=== PATIENT | male | born 1990 | race Caucasian/White ===

== ENCOUNTER 2016-08-29 19:32 | Emergency (ER) | payer OTHER ==
[~2016-08-29 19:32] MED LIST: /CARB4TA; /CARBXR20T; /ESCI10TA; /ESCI10TA PEG; DEPA500T2 PO; DILA100C; DILA100C PO; KLON0.5T PO; TRAZ50TA2 PO
[2016-08-29] MEDS ORDERED: PHENYTOIN ER 100 MG CAP As Ordered ONE (21:39)
[2016-08-29] MEDS ORDERED: lamoTRIgine 25 MG TAB As Ordered ONE (21:40)
[2016-08-29] MEDS ORDERED: ACETAMINOPHEN 325 MG TAB As Ordered ONE (21:45)
[2016-08-29] MEDS ORDERED: DIVALPROEX 250 MG TAB As Ordered ONE (21:46)
[2016-08-29] MEDS ORDERED: ADACEL/BOOSTRIX VACCINE (DIPHTH/PERTUSS/ACELL/TETANUS)0.5ML SYR (90715) As Ordered ONE (22:18)
--- NOTE | 2016-08-29 22:30 | REPUSA ---
CT of the cervical spine Clinical history: Pain. Trauma. Technique: Multiple axial CT images were obtained through the cervical spine without administration o f contrast. Coronal and sagittal 3-D reconstructed images were also obtained. Comparison: None. Findings: The cervical vertebral bodies are in satisfactory positioning and alignment. No fractures or dislocat ions are demonstrated. The odontoid process is intact. Intervertebral disc spaces are well-maintained . There is no evidence of facet subluxation. The neural foramen appear grossly patent. The cervical c ranial junction is intact. The cervical spinal canal demonstrates normal caliber and contour without evidence of spinal stenosis. The surrounding soft tissues are within normal limits. Impression: Unremarkable CT examination of the cervical spine.
--- NOTE | 2016-08-29 22:30 | REPUSA ---
CT of the head Clinical history: Headache. Trauma. Technique: Multiple axial CT images were obtained through the head without administration of contrast . Findings: The ventricles and sulci are symmetric bilaterally. There is no evidence of acute hemorrhag e or infarct. There is no midline shift, mass effect, or extra-axial fluid collection. The osseous st ructures are unremarkable. The visualized paranasal sinuses and mastoid air cells are clear. There is superficial soft tissue swelling in the left frontal region. Impression: No evidence of intracranial hemorrhage or infarct. Superficial soft tissue swelling in th e left frontal region.
--- NOTE | 2016-08-29 23:14 | REP ---
Clinical: Trauma . Technique: Internal rotation, external rotation, and Y view right shoulder . Findings: No acute fracture or dislocation. The acromioclavicular and glenohumeral joints are intact. No periarticular calcifications or degenerative changes are appreciated. Sub acromial space is normal. Surrounding soft tissues are unremarkable. Impression: Normal right shoulder radiographs. Signed by Prem Chappell MD 08/29/2016 11:06 P
--- NOTE | 2016-08-30 00:10 | REPUSA ---
CT of the orbits without contrast Clinical history: Pain, injury. Technique: Multiple axial CT images were obtained through the facial bones and orbits utilizing 3 mm axial slices without administration of contrast. Coronal and sagittal reconstructions were also obtai stephanie. Findings: The visualized paranasal sinuses are clear. The osteomeatal complexes are patent bilaterall y. The nasal septum is midline. The visualized mastoid air cells are clear. The osseous structures do not demonstrate any acute abnormalities. The superficial soft tissues are swollen significant home i n the left frontal region superior to the left orbit. Impression: No acute fracture. Significant superficial soft tissue swelling in the left frontal regio n.
--- NOTE | 2016-08-30 00:39 | EDDOCDS ---
Nurse's Notes [facility] Name: Peter Mcintyre Age: 26 yrs Sex: Male : 1990 Arrival Date: 08/29/2016 Time: 19:32 Bed I1 / M1 Private MD: Diagnosis: Epilepsy and recurrent seizures;Contusion of other part of head;Abrasion of other part of head Presentation: 08/29 19:42 Presenting complaint: Patient states: believes he had a seizure - states he does not pml have a neurologist right now and has been "limited" on his medications - has been dropped by neuro here and refuses to see neuro in [place]. states seizure around and hour ago - and fell striking head and notes swelling and bruising to left tenriism and eyebrow. Adult Sepsis Screening: The patient does not have new or worsening altered mentation. Patient's respiratory rate is less than 22. Systolic blood pressure is greater than 100. Patient has a qSOFA score of 0- Negative Sepsis Screen. Suicide/Homicide risk assessment- the patient denies having any suicidal and/or homicidal ideations and does not present with any other emotional, behavioral or mental health complaints. Status: Patient is not a workforce services representative or dependent. Transition of care: patient was not received from another setting of care. 19:42 Acuity: TAMIKA Level 3 pml 19:42 Method Of Arrival: Walkin/Carried/Asstd pml Triage Assessment: 19:45 General: Appears in no apparent distress, Behavior is appropriate for age, cooperative. pml Pain: Location: left eye Pain currently is 7 out of 10 on a pain scale. HIV screening NA for this visit Offered previously. Historical: - Allergies: no known allergies; - Home Meds: 1. phenytoin sodium extended 100 mg oral cap 1 cap twice a day (Last dose: 08/28/2016) 2. Depakote 500 mg Oral TbEC 1 tab 2 times per day (Last dose: 08/28/2016) 3. Lamictal 150 mg Oral tab 1 tab 2 times per day (Last dose: 08/28/2016) - PMHx: Anxiety; Depression; insomnia; Seizure Disorder; - PSHx: vagal nerve stimulator; - Social history: Smoking status: Patient uses tobacco products, heavy tobacco smoker. No barriers to communication noted, The patient speaks fluent Syriac, Speaks appropriately for age. - Family history: Not pertinent. - : The pt / caregiver states he / she is not on anticoagulants. Home medication list is obtained from the patient. - Exposure Risk Screening:: None identified. Screenin/17 00:36 Screening information is obtained from the patient. Fall risk: At risk due to apparent jmb chemical impairment. Assistance ADL's: requires no assistance with activities of daily living. Abuse/DV Screen: The patient / caregiver reports he/she is: not in a situation that causes fear, pain or injury. Nutritional screening: No deficits noted. Advance Directives: Currently, there is no health care proxy. There is no active DNR order. There is no living will. There is no Power of Riveting Machine Operator. home support is adequate. Assessment: 08/29 20:11 General: Appears in no apparent distress, comfortable, Behavior is appropriate for age, jmb cooperative. Neurological: Level of Consciousness is awake, alert, obeys commands, Oriented to person, place, time, Speech is normal, Facial symmetry appears normal, Facial symmetry: tongue is midline. Cardiovascular: Capillary refill < 3 seconds Heart tones present Pulses are all present. Rhythm is regular. Respiratory: Airway is patent Respiratory effort is even, unlabored, Respiratory pattern is regular, symmetrical. GI: Abdomen is non- distended Bowel sounds present X 4 quads. Abd is soft and non tender X 4 quads. Derm: Skin is pink, warm & dry. Musculoskeletal: Range of motion intact in all extremities. 21:46 General: patient resting in bed texting on his cell phone.. cp1 23:54 General: Appears in no apparent distress, comfortable, Behavior is appropriate for age, jmb cooperative, Patient laying on stretcher, no voiced complaints at this time. . Neurological: Level of Consciousness is awake, alert, obeys commands, Oriented to person, place, time. Respiratory: Airway is patent Respiratory effort is even, unlabored, Respiratory pattern is regular, symmetrical. 08/30 00:36 General: Patient instructed on discharge instructions. Patient asked if there were any [facility] questions regarding discharge, patient stated no. Patient signed discharge instructions. Patient discharged in stable condition. . Vital Signs: 08/29 19:34 BP 167 / 87; Pulse 110; Resp 18; Temp 98.1; Pulse Ox 93% ; Weight 103.87 kg; Height 5 jlm ft. 7 in. (170.18 cm); Pain 8/10; 21:45 BP 145 / 65; Pulse 72; Resp 18; Temp 97.8(O); Pulse Ox 96% on R/A; Pain 5/10; cp1 08/30 00:35 BP 129 / 68; Pulse 96; Resp 18; Temp 96.4(O); Pulse Ox 94% on R/A; Pain 5/10; kb5 08/29 19:34 Body Mass Index 35.87 (103.87 kg, 170.18 cm) jl Vitals: 08/29 19:34 Log In Time: August 29, 2016 at 19:34. RN notified that patient meets Red Flag jl criteria. ED Course: 19:33 Patient visited by Maine Zhong, Gear Cutter. jlm 19:33 Patient moved to Waiting jlm 19:36 Patient visited by Maine Zhong, Gear Cutter. jlm 19:44 Triage Initiated pml 19:45 Patient visited by Aviva Mota RN. pml 19:46 Patient moved to I1 / M1 pml 19:50 Patient visited by Sonya Lawrence. sew 19:50 Seizure precautions initiated. sew 20:12 Patient visited by Raj Charles,CARLOS. jmb 21:08 Patient visited by Brittany Jim LPN. cp1 21:13 Reynold Walsh PA is PHCP. mo1 21:13 Sal Honeycutt DO is Attending Physician. mo1 21:21 Patient visited by Reynold Walsh PA. mo1 21:45 Patient visited by Brittany Jim LPN. cp1 21:50 Patient moved to Radiology lucrecia 21:54 Patient visited by Brittany Jim LPN. cp1 22:16 Patient moved to I1 / M1 lucrecia 22:26 Patient visited by Brittany Jim LPN. cp1 22:27 [facility] [place] was [place] into [employer] and attached to record. zo 22:49 Patient visited by Brittany Jim LPN. cp1 23:08 CT Spine,Cervical W/o Contrast Returned. EDMS 23:08 CT Head Without Contrast Returned. EDMS 23:17 Patient visited by Brittany Jim LPN. cp1 23:54 Patient visited by Raj Charles RN. jmb 08/30 00:02 Shoulder, Complete Returned. EDMS 00:36 The patient / caregiver is instructed regarding the plan of care and ED course. jmb 00:36 CT Orbit Without Contrast Returned. EDMS 00:36 No IV's were initiated during this patient's visit. No procedures done that require jmb assistance. 00:37 Patient visited by Edgar Alberts PCA. kb5 Administered Medications: 08/29 21:53 Drug: Acetaminophen 975 mg [acetaminophen 325 mg tablet (3 tabs)] Route: PO; cp1 21:53 Drug: Depakote DR - Divalproex Sodium 500 mg [divalproex 250 mg tablet,delayed release cp1 (2 tabs)] Route: PO; 21:53 Drug: LaMICtal 150 mg Route: PO; cp1 21:53 Drug: Phenytoin Sodium Extended 100 mg [phenytoin sodium extended 100 mg capsule (1 cp1 caps)] Route: PO; 22:31 Drug: Tetanus- Diptheria-Acellular Pertussis 0.5 ml [diphth,pertussis(acel),tetanus 2.5 cp1 Lf unit-8 mcg-5 Lf/0.5mL IM syringe (0.5 mL)] {Pbx Repairer: [employer]. Exp: 09/24/2018. Lot #: [id number]. } Route: IM; Site: right deltoid; Order Results: Radiology Order: CT Head Without Contrast Test: CT Head Without Contrast REASON FOR EXAMINATION: Trauma; ; CT of the head; Clinical history: Headache. Trauma.; Technique: Multiple axial CT images were obtained through the head without administration of contrast; .; Findings: The ventricles and sulci are symmetric bilaterally. There is no evidence of acute hemorrhag; e or infarct. There is no midline shift, mass effect, or extra-axial fluid collection. The osseous st; ructures are unremarkable. The visualized paranasal sinuses and mastoid air cells are clear. There is; superficial soft tissue swelling in the left frontal region.; Impression: No evidence of intracranial hemorrhage or infarct. Superficial soft tissue swelling in th; e left frontal region.; ; Radiology Order: CT Spine,Cervical W/o Contrast Test: CT Spine,Cervical W/o Contrast REASON FOR EXAMINATION: Trauma; ; CT of the cervical spine; Clinical history: Pain. Trauma.; Technique: Multiple axial CT images were obtained through the cervical spine without administration o; f contrast. Coronal and sagittal 3-D reconstructed images were also obtained.; Comparison: None.; Findings:; The cervical vertebral bodies are in satisfactory positioning and alignment. No fractures or dislocat; ions are demonstrated. The odontoid process is intact. Intervertebral disc spaces are well-maintained; . There is no evidence of facet subluxation. The neural foramen appear grossly patent. The cervical c; ranial junction is intact. The cervical spinal canal demonstrates normal caliber and contour without; evidence of spinal stenosis. The surrounding soft tissues are within normal limits.; Impression: Unremarkable CT examination of the cervical spine.; ; Radiology Order: CT Orbit Without Contrast Test: CT Orbit Without Contrast REASON FOR EXAMINATION: Trauma; ; CT of the orbits without contrast; Clinical history: Pain, injury.; Technique: Multiple axial CT images were obtained through the facial bones and orbits utilizing 3 mm; axial slices without administration of contrast. Coronal and sagittal reconstructions were also obtai; stephanie.; Findings: The visualized paranasal sinuses are clear. The osteomeatal complexes are patent bilaterall; y. The nasal septum is midline. The visualized mastoid air cells are clear. The osseous structures do; not demonstrate any acute abnormalities. The superficial soft tissues are swollen significant home i; n the left frontal region superior to the left orbit.; Impression: No acute fracture. Significant superficial soft tissue swelling in the left frontal regio; n.; ; Radiology Order: Shoulder, Complete Test: Shoulder, Complete REASON FOR EXAMINATION: Trauma; Clinical: Trauma .; ; Technique: Internal rotation, external rotation, and Y view right shoulder .; ; Findings:; No acute fracture or dislocation. The acromioclavicular and glenohumeral joints; are intact. No periarticular calcifications or degenerative changes are; appreciated. Sub acromial space is normal. Surrounding soft tissues are; unremarkable.; ; Impression:; Normal right shoulder radiographs.; ; ; Signed by; Prem Chappell MD 08/29/2016 11:06 P; Outcome: 08/30 00:30 Discharge ordered by Provider. mo1 00:36 Discharge Assessment: Patient awake, alert and oriented x 3. No cognitive and/or jmb functional deficits noted. Patient verbalized understanding of disposition instructions. Patient awake and alert. obeys commands, Oriented to person, place and time. Patient verbalized understanding of disposition instructions. Patient has no functional deficits. patient administered narcotics - no. The following High Risk Discharge criteria are identified: None. Discharged to home ambulatory. Condition: stable. Discharge instructions given to patient, Instructed on discharge instructions, follow up and referral plans. Demonstrated understanding of instructions, Pt was receptive of discharge instructions/ teaching. CT Study completed. Property sent home with patient. 00:38 Patient left the ED. esther Signatures: Dispatcher [employer] EDMS Sourav Castellano Zoeann zo [place]roft, Kristopher, MACHINE ADJUSTER LEADER CASE TRIM MACHINE ADJUSTER LEADER CASE TRIM kb5 Brittany Jim,SOLAR PHOTOVOLTAIC INSTALLER SOLAR PHOTOVOLTAIC INSTALLER cp1 Aviva Mota,RN Sonya Calderon Michael, PA PA mo1 Raj Charles,Maine Vyas RN, Gear Cutter Unit [facility] MTDDoug
--- NOTE | 2016-08-30 00:39 | EDDOCDS ---
Physician Documentation [facility] Name: Peter Mcintyre Age: 26 yrs Sex: Male : 1990 Arrival Date: 08/29/2016 Time: 19:32 Bed I1 / M1 Private MD: Disposition: 08/30/16 00:30 Discharged to Home/Self Care. Impression: Epilepsy and recurrent seizures, Contusion of other part of head, Abrasion of other part of head. - Condition is Stable. - Discharge Instructions: Abrasion, Facial or Scalp Contusion, Head Injury, Adult. - Medication Reconciliation, Local Pharmacy Hours form. - Follow up: Private Physician; When: Call to arrange an appointment; Reason: Recheck today's complaints, Continuance of care. - Problem is new. - Symptoms are unchanged. Historical: - Allergies: no known allergies; - Home Meds: 1. phenytoin sodium extended 100 mg oral cap 1 cap twice a day (Last dose: 08/28/2016) 2. Depakote 500 mg Oral TbEC 1 tab 2 times per day (Last dose: 08/28/2016) 3. Lamictal 150 mg Oral tab 1 tab 2 times per day (Last dose: 08/28/2016) - PMHx: Anxiety; Depression; insomnia; Seizure Disorder; - PSHx: vagal nerve stimulator; - Social history: Smoking status: Patient uses tobacco products, heavy tobacco smoker. No barriers to communication noted, The patient speaks fluent Lao, Speaks appropriately for age. - Family history: Not pertinent. - : The pt / caregiver states he / she is not on anticoagulants. Home medication list is obtained from the patient. - Exposure Risk Screening:: None identified. Vital Signs: 08/29 19:34 BP 167 / 87; Pulse 110; Resp 18; Temp 98.1; Pulse Ox 93% ; Weight 103.87 kg / 228.99 jlm lbs; Height 5 ft. 7 in. (170.18 cm); Pain 8/10; 21:45 BP 145 / 65; Pulse 72; Resp 18; Temp 97.8(O); Pulse Ox 96% on R/A; Pain 5/10; cp1 08/30 00:35 BP 129 / 68; Pulse 96; Resp 18; Temp 96.4(O); Pulse Ox 94% on R/A; Pain 5/10; kb5 08/29 19:34 Body Mass Index 35.87 (103.87 kg, 170.18 cm) jlm MDM: 08/29 21:30 Acetaminophen Tablet 975 mg PO once ordered. mo1 21:30 Tetanus- Diptheria-Acellular Pertussis 0.5 ml IM once; Routine booster 10-64yrs, >64 mo1 with child contact [place] [employer] ordered. 21:31 CT Head Without Contrast Ordered. EDMS 21:31 CT Spine,Cervical W/o Contrast Ordered. EDMS 21:31 CT Orbit Without Contrast Ordered. EDMS 21:[address] - Divalproex Sodium Delayed Release Tablet 500 mg PO once ordered. mo1 21:31 LaMICtal 150 mg PO once ordered. mo1 21:31 Phenytoin Sodium Extended 100 mg PO once ordered. mo1 21:44 Shoulder, Complete Ordered. EDMS 22:26 Financial registration complete. zo 22:27 [facility] [place] Payment Agreement was scanned into [employer] and attached to record. zo Administered Medications: 21:53 Drug: Acetaminophen 975 mg [acetaminophen 325 mg tablet (3 tabs)] Route: PO; cp1 21:53 Drug: Depakote DR - Divalproex Sodium 500 mg [divalproex 250 mg tablet,delayed release cp1 (2 tabs)] Route: PO; 21:53 Drug: LaMICtal 150 mg Route: PO; cp1 21:53 Drug: Phenytoin Sodium Extended 100 mg [phenytoin sodium extended 100 mg capsule (1 cp1 caps)] Route: PO; 22:31 Drug: Tetanus- Diptheria-Acellular Pertussis 0.5 ml [diphth,pertussis(acel),tetanus 2.5 cp1 Lf unit-8 mcg-5 Lf/0.5mL IM syringe (0.5 mL)] {Airframe Technician: [employer]. Exp: 09/24/2018. Lot #: [id number]. } Route: IM; Site: right deltoid; Signatures: Dispatcher [employer] EDMS Quin Tolliver Paulina, RN RN pml O'Hagan, Michael, PA PA mo1 Raj Charles RN RN jmb Perkins, Cheryl LPN cp1 The chart was reviewed and I authenticate all verbal orders and agree with the evaluation and treatment provided.Attachments: 22:27 [facility] [place] zo MTDD
--- NOTE | 2016-08-30 00:43 | EDDOCDS ---
Physician Documentation [facility] Name: Peter Mcintyre Age: 26 yrs Sex: Male : 1990 Arrival Date: 08/29/2016 Time: 19:32 Bed I1 / M1 Private MD: Disposition: 08/30/16 00:30 Discharged to Home/Self Care. Impression: Epilepsy and recurrent seizures, Contusion of other part of head, Abrasion of other part of head. - Condition is Stable. - Discharge Instructions: Abrasion, Facial or Scalp Contusion, Head Injury, Adult. - Medication Reconciliation, Local Pharmacy Hours, Work Release Form - 2 day form. - Follow up: Private Physician; When: Call to arrange an appointment; Reason: Recheck today's complaints, Continuance of care. - Problem is new. - Symptoms are unchanged. Historical: - Allergies: no known allergies; - Home Meds: 1. phenytoin sodium extended 100 mg oral cap 1 cap twice a day (Last dose: 08/28/2016) 2. Depakote 500 mg Oral TbEC 1 tab 2 times per day (Last dose: 08/28/2016) 3. Lamictal 150 mg Oral tab 1 tab 2 times per day (Last dose: 08/28/2016) - PMHx: Anxiety; Depression; insomnia; Seizure Disorder; - PSHx: vagal nerve stimulator; - Social history: Smoking status: Patient uses tobacco products, heavy tobacco smoker. No barriers to communication noted, The patient speaks fluent Syriac, Speaks appropriately for age. - Family history: Not pertinent. - : The pt / caregiver states he / she is not on anticoagulants. Home medication list is obtained from the patient. - Exposure Risk Screening:: None identified. Vital Signs: 08/29 19:34 BP 167 / 87; Pulse 110; Resp 18; Temp 98.1; Pulse Ox 93% ; Weight 103.87 kg / 228.99 jlm lbs; Height 5 ft. 7 in. (170.18 cm); Pain 8/10; 21:45 BP 145 / 65; Pulse 72; Resp 18; Temp 97.8(O); Pulse Ox 96% on R/A; Pain 5/10; cp1 08/30 00:35 BP 129 / 68; Pulse 96; Resp 18; Temp 96.4(O); Pulse Ox 94% on R/A; Pain 5/10; kb5 08/29 19:34 Body Mass Index 35.87 (103.87 kg, 170.18 cm) [facility] MDM: 08/29 21:30 Acetaminophen Tablet 975 mg PO once ordered. mo1 21:30 Tetanus- Diptheria-Acellular Pertussis 0.5 ml IM once; Routine booster 10-64yrs, >64 mo1 with child contact [place] [employer] ordered. 21:31 CT Head Without Contrast Ordered. EDMS 21:31 CT Spine,Cervical W/o Contrast Ordered. EDMS 21:31 CT Orbit Without Contrast Ordered. EDMS 21:[address] - Divalproex Sodium Delayed Release Tablet 500 mg PO once ordered. mo1 21:31 LaMICtal 150 mg PO once ordered. mo1 21:31 Phenytoin Sodium Extended 100 mg PO once ordered. mo1 21:44 Shoulder, Complete Ordered. EDMS 22:26 Financial registration complete. zo 22:27 [facility] Payment Agreement was scanned into [employer] and attached to record. zo Administered Medications: 21:53 Drug: Acetaminophen 975 mg [acetaminophen 325 mg tablet (3 tabs)] Route: PO; cp1 21:53 Drug: Depakote DR - Divalproex Sodium 500 mg [divalproex 250 mg tablet,delayed release cp1 (2 tabs)] Route: PO; 21:53 Drug: LaMICtal 150 mg Route: PO; cp1 21:53 Drug: Phenytoin Sodium Extended 100 mg [phenytoin sodium extended 100 mg capsule (1 cp1 caps)] Route: PO; 22:31 Drug: Tetanus- Diptheria-Acellular Pertussis 0.5 ml [diphth,pertussis(acel),tetanus 2.5 cp1 Lf unit-8 mcg-5 Lf/0.5mL IM syringe (0.5 mL)] {Farm Instructor: [employer]. Exp: 09/24/2018. Lot #: [id number]. } Route: IM; Site: right deltoid; Signatures: Dispatcher [employer] EDMS Quin Tolliver Paulina, RN RN pml O'Hagan, Michael, PA PA mo1 Raj Charles RN RN jmb Perkins, Cheryl LPN cp1 The chart was reviewed and I authenticate all verbal orders and agree with the evaluation and treatment provided.Attachments: 22:27 [facility] [place] MTDD
--- NOTE | 2016-08-30 00:43 | EDDOCDS ---
Nurse's Notes [facility] Name: Peter Mcintyre Age: 26 yrs Sex: Male : 1990 Arrival Date: 08/29/2016 Time: 19:32 Bed I1 / M1 Private MD: Diagnosis: Epilepsy and recurrent seizures;Contusion of other part of head;Abrasion of other part of head Presentation: 08/29 19:42 Presenting complaint: Patient states: believes he had a seizure - states he does not pml have a neurologist right now and has been "limited" on his medications - has been dropped by neuro here and refuses to see neuro in [place]. states seizure around and hour ago - and fell striking head and notes swelling and bruising to left muslim and eyebrow. Adult Sepsis Screening: The patient does not have new or worsening altered mentation. Patient's respiratory rate is less than 22. Systolic blood pressure is greater than 100. Patient has a qSOFA score of 0- Negative Sepsis Screen. Suicide/Homicide risk assessment- the patient denies having any suicidal and/or homicidal ideations and does not present with any other emotional, behavioral or mental health complaints. Status: Patient is not a central service supply distributor or dependent. Transition of care: patient was not received from another setting of care. 19:42 Acuity: TAMIKA Level 3 pml 19:42 Method Of Arrival: Walkin/Carried/Asstd pml Triage Assessment: 19:45 General: Appears in no apparent distress, Behavior is appropriate for age, cooperative. pml Pain: Location: left eye Pain currently is 7 out of 10 on a pain scale. HIV screening NA for this visit Offered previously. Historical: - Allergies: no known allergies; - Home Meds: 1. phenytoin sodium extended 100 mg oral cap 1 cap twice a day (Last dose: 08/28/2016) 2. Depakote 500 mg Oral TbEC 1 tab 2 times per day (Last dose: 08/28/2016) 3. Lamictal 150 mg Oral tab 1 tab 2 times per day (Last dose: 08/28/2016) - PMHx: Anxiety; Depression; insomnia; Seizure Disorder; - PSHx: vagal nerve stimulator; - Social history: Smoking status: Patient uses tobacco products, heavy tobacco smoker. No barriers to communication noted, The patient speaks fluent Telugu, Speaks appropriately for age. - Family history: Not pertinent. - : The pt / caregiver states he / she is not on anticoagulants. Home medication list is obtained from the patient. - Exposure Risk Screening:: None identified. Screenin/17 00:36 Screening information is obtained from the patient. Fall risk: At risk due to apparent jmb chemical impairment. Assistance ADL's: requires no assistance with activities of daily living. Abuse/DV Screen: The patient / caregiver reports he/she is: not in a situation that causes fear, pain or injury. Nutritional screening: No deficits noted. Advance Directives: Currently, there is no health care proxy. There is no active DNR order. There is no living will. There is no Power of Restorative Care Technician. home support is adequate. Assessment: 08/29 20:11 General: Appears in no apparent distress, comfortable, Behavior is appropriate for age, jmb cooperative. Neurological: Level of Consciousness is awake, alert, obeys commands, Oriented to person, place, time, Speech is normal, Facial symmetry appears normal, Facial symmetry: tongue is midline. Cardiovascular: Capillary refill < 3 seconds Heart tones present Pulses are all present. Rhythm is regular. Respiratory: Airway is patent Respiratory effort is even, unlabored, Respiratory pattern is regular, symmetrical. GI: Abdomen is non- distended Bowel sounds present X 4 quads. Abd is soft and non tender X 4 quads. Derm: Skin is pink, warm & dry. Musculoskeletal: Range of motion intact in all extremities. 21:46 General: patient resting in bed texting on his cell phone.. cp1 23:54 General: Appears in no apparent distress, comfortable, Behavior is appropriate for age, jmb cooperative, Patient laying on stretcher, no voiced complaints at this time. . Neurological: Level of Consciousness is awake, alert, obeys commands, Oriented to person, place, time. Respiratory: Airway is patent Respiratory effort is even, unlabored, Respiratory pattern is regular, symmetrical. 08/30 00:36 General: Patient instructed on discharge instructions. Patient asked if there were any [facility] questions regarding discharge, patient stated no. Patient signed discharge instructions. Patient discharged in stable condition. . Vital Signs: 08/29 19:34 BP 167 / 87; Pulse 110; Resp 18; Temp 98.1; Pulse Ox 93% ; Weight 103.87 kg; Height 5 jlm ft. 7 in. (170.18 cm); Pain 8/10; 21:45 BP 145 / 65; Pulse 72; Resp 18; Temp 97.8(O); Pulse Ox 96% on R/A; Pain 5/10; cp1 08/30 00:35 BP 129 / 68; Pulse 96; Resp 18; Temp 96.4(O); Pulse Ox 94% on R/A; Pain 5/10; kb5 08/29 19:34 Body Mass Index 35.87 (103.87 kg, 170.18 cm) jl Vitals: 08/29 19:34 Log In Time: August 29, 2016 at 19:34. RN notified that patient meets Red Flag jl criteria. ED Course: 19:33 Patient visited by Maine Zhong, Leaf Sorter. jlm 19:33 Patient moved to Waiting jlm 19:36 Patient visited by Maine Zhong, Leaf Sorter. jlm 19:44 Triage Initiated pml 19:45 Patient visited by Aviva Mota RN. pml 19:46 Patient moved to I1 / M1 pml 19:50 Patient visited by Sonya Lawrence. sew 19:50 Seizure precautions initiated. sew 20:12 Patient visited by Raj Charles,CARLOS. jmb 21:08 Patient visited by Brittany Jim LPN. cp1 21:13 Reynold Walsh PA is PHCP. mo1 21:13 Sal Honeycutt DO is Attending Physician. mo1 21:21 Patient visited by Reynold Walsh PA. mo1 21:45 Patient visited by Brittany Jim LPN. cp1 21:50 Patient moved to Radiology lucrecia 21:54 Patient visited by Brittany Jim LPN. cp1 22:16 Patient moved to I1 / M1 lucrecia 22:26 Patient visited by Brittany Jim LPN. cp1 22:27 [facility] Payment Agreement was scanned into [employer] and attached to record. zo 22:49 Patient visited by Brittany Jim LPN. cp1 23:08 CT Spine,Cervical W/o Contrast Returned. EDMS 23:08 CT Head Without Contrast Returned. EDMS 23:17 Patient visited by Brittany Jim LPN. cp1 23:54 Patient visited by Raj Charles RN. jmb 08/30 00:02 Shoulder, Complete Returned. EDMS 00:36 The patient / caregiver is instructed regarding the plan of care and ED course. jmb 00:36 CT Orbit Without Contrast Returned. EDMS 00:36 No IV's were initiated during this patient's visit. No procedures done that require jmb assistance. 00:37 Patient visited by Edgar Alberts PCA. kb5 Administered Medications: 08/29 21:53 Drug: Acetaminophen 975 mg [acetaminophen 325 mg tablet (3 tabs)] Route: PO; cp1 21:53 Drug: Depakote DR - Divalproex Sodium 500 mg [divalproex 250 mg tablet,delayed release cp1 (2 tabs)] Route: PO; 21:53 Drug: LaMICtal 150 mg Route: PO; cp1 21:53 Drug: Phenytoin Sodium Extended 100 mg [phenytoin sodium extended 100 mg capsule (1 cp1 caps)] Route: PO; 22:31 Drug: Tetanus- Diptheria-Acellular Pertussis 0.5 ml [diphth,pertussis(acel),tetanus 2.5 cp1 Lf unit-8 mcg-5 Lf/0.5mL IM syringe (0.5 mL)] {[employer]: [employer]. Exp: 09/24/2018. Lot #: [id number]. } Route: IM; Site: right deltoid; Order Results: Radiology Order: CT Head Without Contrast Test: CT Head Without Contrast REASON FOR EXAMINATION: Trauma; ; CT of the head; Clinical history: Headache. Trauma.; Technique: Multiple axial CT images were obtained through the head without administration of contrast; .; Findings: The ventricles and sulci are symmetric bilaterally. There is no evidence of acute hemorrhag; e or infarct. There is no midline shift, mass effect, or extra-axial fluid collection. The osseous st; ructures are unremarkable. The visualized paranasal sinuses and mastoid air cells are clear. There is; superficial soft tissue swelling in the left frontal region.; Impression: No evidence of intracranial hemorrhage or infarct. Superficial soft tissue swelling in th; e left frontal region.; ; Radiology Order: CT Spine,Cervical W/o Contrast Test: CT Spine,Cervical W/o Contrast REASON FOR EXAMINATION: Trauma; ; CT of the cervical spine; Clinical history: Pain. Trauma.; Technique: Multiple axial CT images were obtained through the cervical spine without administration o; f contrast. Coronal and sagittal 3-D reconstructed images were also obtained.; Comparison: None.; Findings:; The cervical vertebral bodies are in satisfactory positioning and alignment. No fractures or dislocat; ions are demonstrated. The odontoid process is intact. Intervertebral disc spaces are well-maintained; . There is no evidence of facet subluxation. The neural foramen appear grossly patent. The cervical c; ranial junction is intact. The cervical spinal canal demonstrates normal caliber and contour without; evidence of spinal stenosis. The surrounding soft tissues are within normal limits.; Impression: Unremarkable CT examination of the cervical spine.; ; Radiology Order: CT Orbit Without Contrast Test: CT Orbit Without Contrast REASON FOR EXAMINATION: Trauma; ; CT of the orbits without contrast; Clinical history: Pain, injury.; Technique: Multiple axial CT images were obtained through the facial bones and orbits utilizing 3 mm; axial slices without administration of contrast. Coronal and sagittal reconstructions were also obtai; stephanie.; Findings: The visualized paranasal sinuses are clear. The osteomeatal complexes are patent bilaterall; y. The nasal septum is midline. The visualized mastoid air cells are clear. The osseous structures do; not demonstrate any acute abnormalities. The superficial soft tissues are swollen significant home i; n the left frontal region superior to the left orbit.; Impression: No acute fracture. Significant superficial soft tissue swelling in the left frontal regio; n.; ; Radiology Order: Shoulder, Complete Test: Shoulder, Complete REASON FOR EXAMINATION: Trauma; Clinical: Trauma .; ; Technique: Internal rotation, external rotation, and Y view right shoulder .; ; Findings:; No acute fracture or dislocation. The acromioclavicular and glenohumeral joints; are intact. No periarticular calcifications or degenerative changes are; appreciated. Sub acromial space is normal. Surrounding soft tissues are; unremarkable.; ; Impression:; Normal right shoulder radiographs.; ; ; Signed by; Prem Chappell MD 08/29/2016 11:06 P; Outcome: 08/30 00:30 Discharge ordered by Provider. mo1 00:36 Discharge Assessment: Patient awake, alert and oriented x 3. No cognitive and/or jmb functional deficits noted. Patient verbalized understanding of disposition instructions. Patient awake and alert. obeys commands, Oriented to person, place and time. Patient verbalized understanding of disposition instructions. Patient has no functional deficits. patient administered narcotics - no. The following High Risk Discharge criteria are identified: None. Discharged to home ambulatory. Condition: stable. Discharge instructions given to patient, Instructed on discharge instructions, follow up and referral plans. Demonstrated understanding of instructions, Pt was receptive of discharge instructions/ teaching. CT Study completed. Property sent home with patient. 00:38 Patient left the ED. jmb 00:42 Patient left the ED. kierab Signatures: Dispatcher [employer] EDMS Sourav Castellano Zoeann zo B[place]roft, Kristopher, FLAT OPTICAL ELEMENT MAKER FLAT OPTICAL ELEMENT MAKER kb5 Brittany Jim,ROAD SUPERVISOR OF ENGINES ROAD SUPERVISOR OF ENGINES cp1 Aviva Mota,RN RN Sonya Lopez Michael, PA PA mo1 Raj Charles,RN RN Maine Doyle, Leaf Sorter Unit ele MTDD
--- NOTE | 2016-09-01 01:43 | EDDOCDS ---
Physician Documentation [facility] Name: Peter Mcintyre Age: 26 yrs Sex: Male : 1990 Arrival Date: 08/29/2016 Time: 19:32 Bed I1 / M1 Private MD: Disposition: 08/30/16 00:30 Discharged to Home/Self Care. Impression: Epilepsy and recurrent seizures, Contusion of other part of head, Abrasion of other part of head. - Condition is Stable. - Discharge Instructions: Abrasion, Facial or Scalp Contusion, Head Injury, Adult. - Medication Reconciliation, Local Pharmacy Hours, Work Release Form - 2 day form. - Follow up: Private Physician; When: Call to arrange an appointment; Reason: Recheck today's complaints, Continuance of care. - Problem is new. - Symptoms are unchanged. Historical: - Allergies: no known allergies; - Home Meds: 1. phenytoin sodium extended 100 mg oral cap 1 cap twice a day (Last dose: 08/28/2016) 2. Depakote 500 mg Oral TbEC 1 tab 2 times per day (Last dose: 08/28/2016) 3. Lamictal 150 mg Oral tab 1 tab 2 times per day (Last dose: 08/28/2016) - PMHx: Anxiety; Depression; insomnia; Seizure Disorder; - PSHx: vagal nerve stimulator; - Social history: Smoking status: Patient uses tobacco products, heavy tobacco smoker. No barriers to communication noted, The patient speaks fluent Lithuanian, Speaks appropriately for age. - Family history: Not pertinent. - : The pt / caregiver states he / she is not on anticoagulants. Home medication list is obtained from the patient. - Exposure Risk Screening:: None identified. Vital Signs: 08/29 19:34 BP 167 / 87; Pulse 110; Resp 18; Temp 98.1; Pulse Ox 93% ; Weight 103.87 kg / 228.99 jlm lbs; Height 5 ft. 7 in. (170.18 cm); Pain 8/10; 21:45 BP 145 / 65; Pulse 72; Resp 18; Temp 97.8(O); Pulse Ox 96% on R/A; Pain 5/10; cp1 08/30 00:35 BP 129 / 68; Pulse 96; Resp 18; Temp 96.4(O); Pulse Ox 94% on R/A; Pain 5/10; kb5 08/29 19:34 Body Mass Index 35.87 (103.87 kg, 170.18 cm) jlm MDM: 08/29 21:30 Acetaminophen Tablet 975 mg PO once ordered. mo1 21:30 Tetanus- Diptheria-Acellular Pertussis 0.5 ml IM once; Routine booster 10-64yrs, >64 mo1 with child contact Craig Omnicell ordered. 21:31 CT Head Without Contrast Ordered. EDMS 21:31 CT Spine,Cervical W/o Contrast Ordered. EDMS 21:31 CT Orbit Without Contrast Ordered. EDMS 21:[address] - Divalproex Sodium Delayed Release Tablet 500 mg PO once ordered. mo1 21:31 LaMICtal 150 mg PO once ordered. mo1 21:31 Phenytoin Sodium Extended 100 mg PO once ordered. mo1 21:44 Shoulder, Complete Ordered. EDMS 22:26 Financial registration complete. zo 22:27 [facility] Payment Agreement was scanned into [employer] and attached to record. zo 08/30 09:44 T-Sheet-- Draft Copy was scanned into [employer] and attached to record. gb 09:44 Radiology Report was scanned into [employer] and attached to record. gb Administered Medications: 08/29 21:53 Drug: Acetaminophen 975 mg [acetaminophen 325 mg tablet (3 tabs)] Route: PO; cp1 21:53 Drug: Depakote DR - Divalproex Sodium 500 mg [divalproex 250 mg tablet,delayed release cp1 (2 tabs)] Route: PO; 21:53 Drug: LaMICtal 150 mg Route: PO; cp1 21:53 Drug: Phenytoin Sodium Extended 100 mg [phenytoin sodium extended 100 mg capsule (1 cp1 caps)] Route: PO; 22:31 Drug: Tetanus- Diptheria-Acellular Pertussis 0.5 ml [diphth,pertussis(acel),tetanus 2.5 cp1 Lf unit-8 mcg-5 Lf/0.5mL IM syringe (0.5 mL)] {Embed[employer] Systems Software Developer: [employer]. Exp: 09/24/2018. Lot #: [id number]. } Route: IM; Site: right deltoid; Signatures: Dispatcher [employer] EDRisa Fajardo, Reg Reg gb Quin Tolliver Paulina, RN RN Reynold Alonzo PA PA mo1 Raj CharlesRN RN Brittany Lazo LPN cp1 The chart was reviewed and I authenticate all verbal orders and agree with the evaluation and treatment provided.Attachments: 22:27 [facility] Payment Agreement zo 08/30 09:44 T-Sheet-- Draft Copy gb Chart Complete MTDD
--- NOTE | 2016-09-01 01:43 | EDDOCDS ---
Nurse's Notes [facility] Name: Peter Mcintyre Age: 26 yrs Sex: Male : 1990 Arrival Date: 08/29/2016 Time: 19:32 Bed I1 / M1 Private MD: Diagnosis: Epilepsy and recurrent seizures;Contusion of other part of head;Abrasion of other part of head Presentation: 08/29 19:42 Presenting complaint: Patient states: believes he had a seizure - states he does not pml have a neurologist right now and has been "limited" on his medications - has been dropped by neuro here and refuses to see neuro in [place]. states seizure around and hour ago - and fell striking head and notes swelling and bruising to left druze and eyebrow. Adult Sepsis Screening: The patient does not have new or worsening altered mentation. Patient's respiratory rate is less than 22. Systolic blood pressure is greater than 100. Patient has a qSOFA score of 0- Negative Sepsis Screen. Suicide/Homicide risk assessment- the patient denies having any suicidal and/or homicidal ideations and does not present with any other emotional, behavioral or mental health complaints. Status: Patient is not a air purifier servicer or dependent. Transition of care: patient was not received from another setting of care. 19:42 Acuity: TAMIKA Level 3 pml 19:42 Method Of Arrival: Walkin/Carried/Asstd pml Triage Assessment: 19:45 General: Appears in no apparent distress, Behavior is appropriate for age, cooperative. pml Pain: Location: left eye Pain currently is 7 out of 10 on a pain scale. HIV screening NA for this visit Offered previously. Historical: - Allergies: no known allergies; - Home Meds: 1. phenytoin sodium extended 100 mg oral cap 1 cap twice a day (Last dose: 08/28/2016) 2. Depakote 500 mg Oral TbEC 1 tab 2 times per day (Last dose: 08/28/2016) 3. Lamictal 150 mg Oral tab 1 tab 2 times per day (Last dose: 08/28/2016) - PMHx: Anxiety; Depression; insomnia; Seizure Disorder; - PSHx: vagal nerve stimulator; - Social history: Smoking status: Patient uses tobacco products, heavy tobacco smoker. No barriers to communication noted, The patient speaks fluent Bengali, Speaks appropriately for age. - Family history: Not pertinent. - : The pt / caregiver states he / she is not on anticoagulants. Home medication list is obtained from the patient. - Exposure Risk Screening:: None identified. Screenin/17 00:36 Screening information is obtained from the patient. Fall risk: At risk due to apparent jmb chemical impairment. Assistance ADL's: requires no assistance with activities of daily living. Abuse/DV Screen: The patient / caregiver reports he/she is: not in a situation that causes fear, pain or injury. Nutritional screening: No deficits noted. Advance Directives: Currently, there is no health care proxy. There is no active DNR order. There is no living will. There is no Power of Wire Coating Operator Metal. home support is adequate. Assessment: 08/29 20:11 General: Appears in no apparent distress, comfortable, Behavior is appropriate for age, jmb cooperative. Neurological: Level of Consciousness is awake, alert, obeys commands, Oriented to person, place, time, Speech is normal, Facial symmetry appears normal, Facial symmetry: tongue is midline. Cardiovascular: Capillary refill < 3 seconds Heart tones present Pulses are all present. Rhythm is regular. Respiratory: Airway is patent Respiratory effort is even, unlabored, Respiratory pattern is regular, symmetrical. GI: Abdomen is non- distended Bowel sounds present X 4 quads. Abd is soft and non tender X 4 quads. Derm: Skin is pink, warm & dry. Musculoskeletal: Range of motion intact in all extremities. 21:46 General: patient resting in bed texting on his cell phone.. cp1 23:54 General: Appears in no apparent distress, comfortable, Behavior is appropriate for age, jmb cooperative, Patient laying on stretcher, no voiced complaints at this time. . Neurological: Level of Consciousness is awake, alert, obeys commands, Oriented to person, place, time. Respiratory: Airway is patent Respiratory effort is even, unlabored, Respiratory pattern is regular, symmetrical. 08/30 00:36 General: Patient instructed on discharge instructions. Patient asked if there were any [facility] questions regarding discharge, patient stated no. Patient signed discharge instructions. Patient discharged in stable condition. . Vital Signs: 08/29 19:34 BP 167 / 87; Pulse 110; Resp 18; Temp 98.1; Pulse Ox 93% ; Weight 103.87 kg; Height 5 jlm ft. 7 in. (170.18 cm); Pain 8/10; 21:45 BP 145 / 65; Pulse 72; Resp 18; Temp 97.8(O); Pulse Ox 96% on R/A; Pain 5/10; cp1 08/30 00:35 BP 129 / 68; Pulse 96; Resp 18; Temp 96.4(O); Pulse Ox 94% on R/A; Pain 5/10; kb5 08/29 19:34 Body Mass Index 35.87 (103.87 kg, 170.18 cm) jl Vitals: 08/29 19:34 Log In Time: August 29, 2016 at 19:34. RN notified that patient meets Red Flag jl criteria. ED Course: 19:33 Patient visited by Maine Zhong, Remedial Teacher. jlm 19:33 Patient moved to Waiting jlm 19:36 Patient visited by Maine Zhong, Remedial Teacher. jlm 19:44 Triage Initiated pml 19:45 Patient visited by Aviva Mota RN. pml 19:46 Patient moved to I1 / M1 pml 19:50 Patient visited by Sonya Lawrence. sew 19:50 Seizure precautions initiated. sew 20:12 Patient visited by Raj Charles,CARLOS. jmb 21:08 Patient visited by Brittany Jim LPN. cp1 21:13 Reynold Walsh PA is PHCP. mo1 21:13 Sal Honeycutt DO is Attending Physician. mo1 21:21 Patient visited by Reynold Walsh PA. mo1 21:45 Patient visited by Brittany Jim LPN. cp1 21:50 Patient moved to Radiology lucrecia 21:54 Patient visited by Brittany Jim LPN. cp1 22:16 Patient moved to I1 / M1 lucrecia 22:26 Patient visited by Brittany Jim LPN. cp1 22:27 [facility] Payment Agreement was scanned into [employer] and attached to record. zo 22:49 Patient visited by Brittany Jim LPN. cp1 23:08 CT Spine,Cervical W/o Contrast Returned. EDMS 23:08 CT Head Without Contrast Returned. EDMS 23:17 Patient visited by Brittany Jim LPN. cp1 23:54 Patient visited by Raj Charles RN. jmb 08/30 00:02 Shoulder, Complete Returned. EDMS 00:36 The patient / caregiver is instructed regarding the plan of care and ED course. jmb 00:36 CT Orbit Without Contrast Returned. EDMS 00:36 No IV's were initiated during this patient's visit. No procedures done that require jmb assistance. 00:37 Patient visited by Edgar Alberts PCA. kb5 09:44 T-Sheet-- Draft Copy was scanned into [employer] and attached to record. gb 09:44 Radiology Report was scanned into [employer] and attached to record. gb Administered Medications: 08/29 21:53 Drug: Acetaminophen 975 mg [acetaminophen 325 mg tablet (3 tabs)] Route: PO; cp1 21:53 Drug: Depakote DR - Divalproex Sodium 500 mg [divalproex 250 mg tablet,delayed release cp1 (2 tabs)] Route: PO; 21:53 Drug: LaMICtal 150 mg Route: PO; cp1 21:53 Drug: Phenytoin Sodium Extended 100 mg [phenytoin sodium extended 100 mg capsule (1 cp1 caps)] Route: PO; 22:31 Drug: Tetanus- Diptheria-Acellular Pertussis 0.5 ml [diphth,pertussis(acel),tetanus 2.5 cp1 Lf unit-8 mcg-5 Lf/0.5mL IM syringe (0.5 mL)] {Behavioral Sciences Instructor: [employer]. Exp: 09/24/2018. Lot #: [id number]. } Route: IM; Site: right deltoid; Order Results: Radiology Order: CT Head Without Contrast Test: CT Head Without Contrast REASON FOR EXAMINATION: Trauma; ; CT of the head; Clinical history: Headache. Trauma.; Technique: Multiple axial CT images were obtained through the head without administration of contrast; .; Findings: The ventricles and sulci are symmetric bilaterally. There is no evidence of acute hemorrhag; e or infarct. There is no midline shift, mass effect, or extra-axial fluid collection. The osseous st; ructures are unremarkable. The visualized paranasal sinuses and mastoid air cells are clear. There is; superficial soft tissue swelling in the left frontal region.; Impression: No evidence of intracranial hemorrhage or infarct. Superficial soft tissue swelling in th; e left frontal region.; ; Radiology Order: CT Spine,Cervical W/o Contrast Test: CT Spine,Cervical W/o Contrast REASON FOR EXAMINATION: Trauma; ; CT of the cervical spine; Clinical history: Pain. Trauma.; Technique: Multiple axial CT images were obtained through the cervical spine without administration o; f contrast. Coronal and sagittal 3-D reconstructed images were also obtained.; Comparison: None.; Findings:; The cervical vertebral bodies are in satisfactory positioning and alignment. No fractures or dislocat; ions are demonstrated. The odontoid process is intact. Intervertebral disc spaces are well-maintained; . There is no evidence of facet subluxation. The neural foramen appear grossly patent. The cervical c; ranial junction is intact. The cervical spinal canal demonstrates normal caliber and contour without; evidence of spinal stenosis. The surrounding soft tissues are within normal limits.; Impression: Unremarkable CT examination of the cervical spine.; ; Radiology Order: CT Orbit Without Contrast Test: CT Orbit Without Contrast REASON FOR EXAMINATION: Trauma; ; CT of the orbits without contrast; Clinical history: Pain, injury.; Technique: Multiple axial CT images were obtained through the facial bones and orbits utilizing 3 mm; axial slices without administration of contrast. Coronal and sagittal reconstructions were also obtai; stephanie.; Findings: The visualized paranasal sinuses are clear. The osteomeatal complexes are patent bilaterall; y. The nasal septum is midline. The visualized mastoid air cells are clear. The osseous structures do; not demonstrate any acute abnormalities. The superficial soft tissues are swollen significant home i; n the left frontal region superior to the left orbit.; Impression: No acute fracture. Significant superficial soft tissue swelling in the left frontal regio; n.; ; Radiology Order: Shoulder, Complete Test: Shoulder, Complete REASON FOR EXAMINATION: Trauma; Clinical: Trauma .; ; Technique: Internal rotation, external rotation, and Y view right shoulder .; ; Findings:; No acute fracture or dislocation. The acromioclavicular and glenohumeral joints; are intact. No periarticular calcifications or degenerative changes are; appreciated. Sub acromial space is normal. Surrounding soft tissues are; unremarkable.; ; Impression:; Normal right shoulder radiographs.; ; ; Signed by; Prem Chappell MD 08/29/2016 11:06 P; Outcome: 08/30 00:30 Discharge ordered by Provider. mo1 00:36 Discharge Assessment: Patient awake, alert and oriented x 3. No cognitive and/or jmb functional deficits noted. Patient verbalized understanding of disposition instructions. Patient awake and alert. obeys commands, Oriented to person, place and time. Patient verbalized understanding of disposition instructions. Patient has no functional deficits. patient administered narcotics - no. The following High Risk Discharge criteria are identified: None. Discharged to home ambulatory. Condition: stable. Discharge instructions given to patient, Instructed on discharge instructions, follow up and referral plans. Demonstrated understanding of instructions, Pt was receptive of discharge instructions/ teaching. CT Study completed. Property sent home with patient. 00:38 Patient left the ED. jmb 00:42 Patient left the ED. jmb Signatures: Dispatcher [employer] EDMS Sourav Castellano lucrecia Risa Catherine, Reg Reg gb Unruly, Quin zo Edgar Alberts, MILLER FIRST MILLER FIRST kb5 Brittany Jim,BAR POINTER BAR POINTER cp1 Aviva Mota,RN Sonya Calderon Michael, PA PA mo1 Raj Charles RN RN jmb Mitchell, Jessie, Remedial Teacher Unit [facility] Chart Complete MTDD
--- NOTE | 2016-09-01 01:43 | EDDOCDS ---
Physician Documentation [facility] Name: Peter Mcintyre Age: 26 yrs Sex: Male : 1990 Arrival Date: 08/29/2016 Time: 19:32 Bed I1 / M1 Private MD: Disposition: 08/30/16 00:30 Discharged to Home/Self Care. Impression: Epilepsy and recurrent seizures, Contusion of other part of head, Abrasion of other part of head. - Condition is Stable. - Discharge Instructions: Abrasion, Facial or Scalp Contusion, Head Injury, Adult. - Medication Reconciliation, Local Pharmacy Hours, Work Release Form - 2 day form. - Follow up: Private Physician; When: Call to arrange an appointment; Reason: Recheck today's complaints, Continuance of care. - Problem is new. - Symptoms are unchanged. Historical: - Allergies: no known allergies; - Home Meds: 1. phenytoin sodium extended 100 mg oral cap 1 cap twice a day (Last dose: 08/28/2016) 2. Depakote 500 mg Oral TbEC 1 tab 2 times per day (Last dose: 08/28/2016) 3. Lamictal 150 mg Oral tab 1 tab 2 times per day (Last dose: 08/28/2016) - PMHx: Anxiety; Depression; insomnia; Seizure Disorder; - PSHx: vagal nerve stimulator; - Social history: Smoking status: Patient uses tobacco products, heavy tobacco smoker. No barriers to communication noted, The patient speaks fluent Uzbek, Speaks appropriately for age. - Family history: Not pertinent. - : The pt / caregiver states he / she is not on anticoagulants. Home medication list is obtained from the patient. - Exposure Risk Screening:: None identified. Vital Signs: 08/29 19:34 BP 167 / 87; Pulse 110; Resp 18; Temp 98.1; Pulse Ox 93% ; Weight 103.87 kg / 228.99 jlm lbs; Height 5 ft. 7 in. (170.18 cm); Pain 8/10; 21:45 BP 145 / 65; Pulse 72; Resp 18; Temp 97.8(O); Pulse Ox 96% on R/A; Pain 5/10; cp1 08/30 00:35 BP 129 / 68; Pulse 96; Resp 18; Temp 96.4(O); Pulse Ox 94% on R/A; Pain 5/10; kb5 08/29 19:34 Body Mass Index 35.87 (103.87 kg, 170.18 cm) jlm MDM: 08/29 21:30 Acetaminophen Tablet 975 mg PO once ordered. mo1 21:30 Tetanus- Diptheria-Acellular Pertussis 0.5 ml IM once; Routine booster 10-64yrs, >64 mo1 with child contact [place] [employer] ordered. 21:31 CT Head Without Contrast Ordered. EDMS 21:31 CT Spine,Cervical W/o Contrast Ordered. EDMS 21:31 CT Orbit Without Contrast Ordered. EDMS 21:[address] - Divalproex Sodium Delayed Release Tablet 500 mg PO once ordered. mo1 21:31 LaMICtal 150 mg PO once ordered. mo1 21:31 Phenytoin Sodium Extended 100 mg PO once ordered. mo1 21:44 Shoulder, Complete Ordered. EDMS 22:26 Financial registration complete. zo 22:27 [facility] Payment Agreement was scanned into [employer] and attached to record. zo 08/30 09:44 T-Sheet-- Draft Copy was scanned into [employer] and attached to record. gb 09:44 Radiology Report was scanned into [employer] and attached to record. gb Administered Medications: 08/29 21:53 Drug: Acetaminophen 975 mg [acetaminophen 325 mg tablet (3 tabs)] Route: PO; cp1 21:53 Drug: Depakote DR - Divalproex Sodium 500 mg [divalproex 250 mg tablet,delayed release cp1 (2 tabs)] Route: PO; 21:53 Drug: LaMICtal 150 mg Route: PO; cp1 21:53 Drug: Phenytoin Sodium Extended 100 mg [phenytoin sodium extended 100 mg capsule (1 cp1 caps)] Route: PO; 22:31 Drug: Tetanus- Diptheria-Acellular Pertussis 0.5 ml [diphth,pertussis(acel),tetanus 2.5 cp1 Lf unit-8 mcg-5 Lf/0.5mL IM syringe (0.5 mL)] {Operator Supply: [employer] Exp: 09/24/2018. Lot #: [id number]. } Route: IM; Site: right deltoid; Signatures: Dispatcher [employer] EDRisa Fajardo, Reg Reg gb Quin Tolliver Paulina, RN RN Reynold Alonzo PA PA mo1 Raj CharlesRN RN Brittany Lazo LPN cp1 The chart was reviewed and I authenticate all verbal orders and agree with the evaluation and treatment provided.Attachments: 22:27 [facility] Payment Agreement zo 08/30 09:44 T-Sheet-- Draft Copy gb Chart Complete MTDD
== END 2016-08-30 00:42 | disposition home or self-care (01) ==
LOC: M ED 19:32
DX: S00.81XA Abrasion of other part of head, initial encounter (principal); S00.83XA Contusion of other part of head, initial encounter; G40.909 Epilepsy, unspecified, not intractable, without status epilepticus; F41.9 Anxiety disorder, unspecified; F32.9 Major depressive disorder, single episode, unspecified; G47.00 Insomnia, unspecified; F17.210 Nicotine dependence, cigarettes, uncomplicated; Z79.899 Other long term (current) drug therapy; Z23 Encounter for immunization; W19.XXXA Unspecified fall, initial encounter; Y92.89 Other specified places as the place of occurrence of the external cause; Y93.89 Activity, other specified; Y99.9 Unspecified external cause status

== ENCOUNTER 2017-04-07 13:04 | Emergency (ER) | payer OTHER ==
[~2017-04-07] VITALS: Ht 170.2 cm; Wt 106.8 kg
[2017-04-07 13:05] VITALS: BP 145/93
[2017-04-07] MEDS ORDERED: PHEN100C PO (13:21)
[2017-04-07] MEDS ORDERED: DIVA500T3 PO (13:21)
== END 2017-04-07 14:21 | disposition left against medical advice (07) ==
LOC: M ED 13:04
DX: K08.89 Other specified disorders of teeth and supporting structures (principal); Z53.29 Procedure and treatment not carried out because of patient's decision for other reasons

== ENCOUNTER → 2017-04-23 | Outpatient (CLI) | payer OTHER ==
[~2017-04-23] MED LIST changes: +CLEO300C2 PO; +DIVA500T3 PO; +PHEN100C PO; +TYLETAB14 PO
[2017-04-23 08:59] LABS: BASO # 0.1 K/mm3 (0.0-0.2); BASO % 0.9 % (0.0-1.0); EOS # 0.2 K/mm3 (0.0-0.50); EOS % 2.3 % (0.0-3.0); LARGE UNSTAINED CELL # 0.2 K/mm3 (0.0-0.4); LARGE UNSTAINED CELL % 2.6 % (0.0-4.0); LYMPH # 3.4 K/mm3 (1.5-6.5); LYMPH % 40.1 % (24.0-44.0); MEAN CORPUSCULAR HEMOGLOBIN 31.9 pg (27.0-33.0); MEAN CORPUSCULAR HGB CONC 35.1 g/dl (32.0-36.5); MONO # 0.6 K/mm3 (0.0-0.8); MONO % 6.7 % (0.0-5.0); NEUTROPHILS % 47.3 % (36.0-66.0); PLATELET COUNT, AUTOMATED 291 k/mm3 (150-450); RED CELL DISTRIBUTION WIDTH 12.9 % (11.5-14.5); WHITE BLOOD COUNT 8.5 K/mm3 (4.0-10.0)
[2017-04-23 09:07] LABS: ALBUMIN/GLOBULIN RATIO 1.14 (1.00-1.93); ALKALINE PHOSPHATASE 77 U/L (45-117); ALT/SGPT 51 U/L (12-78); ANION GAP 8 MEQ/L (8-16); AST/SGOT 13 U/L (15-37); BILIRUBIN,TOTAL 0.3 MG/DL (0.2-1.0); BLOOD UREA NITROGEN 15 MG/DL (7-18); CALCIUM LEVEL 9.8 MG/DL (8.5-10.1); CARBON DIOXIDE LEVEL 27 MEQ/L (21-32); CHLORIDE LEVEL 111 MEQ/L (98-107); CHOLESTEROL LEVEL 271 MG/DL (<200); CREATININE FOR GFR 0.93 MG/DL (0.70-1.30); FREE T4 0.85 NG/DL (0.76-1.46); GLOMERULAR FILTRATION RATE > 60.0 (>60); GLUCOSE, FASTING 90 MG/DL (70-105); POTASSIUM SERUM 4.1 MEQ/L (3.5-5.1); SODIUM LEVEL 146 MEQ/L (136-145); TOTAL PROTEIN 7.5 GM/DL (6.4-8.2); TRIGLYCERIDES LEVEL 367 MG/DL (<150)
== END ==
LOC: M LAB 08:08
PROVIDERS: ATTEND Nurse Practitioner Family
DX: G40.901 Epilepsy, unspecified, not intractable, with status epilepticus (principal); Z00.00 Encounter for general adult medical examination without abnormal findings; F32.9 Major depressive disorder, single episode, unspecified

== ENCOUNTER 2017-04-28 08:36 | Emergency (ER) | payer OTHER ==
[~2017-04-28] VITALS: Ht 170.2 cm; Wt 107.7 kg
[~2017-04-28 08:36] MED LIST changes: -CLEO300C2 PO; -TYLETAB14 PO
[2017-04-28 08:39] VITALS: BP 144/103
[2017-04-28] MEDS ORDERED: CLEO300C2 PO (09:32)
[2017-04-28] MEDS ORDERED: TYLETAB14 PO (09:32)
== END 2017-04-28 09:37 | disposition home or self-care (01) ==
LOC: M ED 08:36
DX: F99 Mental disorder, not otherwise specified (principal); R56.9 Unspecified convulsions; F17.210 Nicotine dependence, cigarettes, uncomplicated; Z79.899 Other long term (current) drug therapy

== ENCOUNTER 2017-07-17 10:55 | Emergency (ER) | payer OTHER ==
[~2017-07-17 10:55] MED LIST changes: +CLEO300C2 PO; +TYLETAB14 PO
[2017-07-17] MEDS ORDERED: LAMI25TA PO (12:17)
[2017-07-17] MEDS ORDERED: VALPROATE SOD INJ 500 MG in D5W 50 ML IV ONE (13:15)
[2017-07-17 14:23] VITALS: BP 135/63
== END 2017-07-17 14:36 | disposition home or self-care (01) ==
LOC: M ED 10:55 → EDBD 10:55 → M ED 14:36
DX: G40.919 Epilepsy, unspecified, intractable, without status epilepticus (principal); Z87.891 Personal history of nicotine dependence; Z79.899 Other long term (current) drug therapy

== ENCOUNTER 2018-03-01 19:19 | Emergency (ER) | payer OTHER ==
[2018-03-01 21:22] LABS: BASO # 0.1 10^3/uL (0.0-0.2); BASO % 0.4 % (0.0-1.0); EOS # 0.1 10^3/uL (0.0-0.50); EOS % 0.8 % (0.0-3.0); HEMATOCRIT 48.9 % (42.0-52.0); IMMATURE GRANULOCYTE % 0.4 % (0-3.0); LYMPH # 2.6 10^3/uL (1.5-6.5); LYMPH % 18.3 % (24.0-44.0); MEAN CORPUSCULAR HEMOGLOBIN 31.1 pg (27.0-33.0); MEAN CORPUSCULAR HGB CONC 34.8 g/dl (32.0-36.5); MEAN CORPUSCULAR VOLUME 89.6 fl (80.0-96.0); MONO # 1.1 10^3/uL (0.0-0.8); MONO % 7.6 % (0.0-5.0); NEUTROPHILS # 10.3 10^3/uL (1.8-7.7); NEUTROPHILS % 72.5 % (36.0-66.0); PLATELET COUNT, AUTOMATED 281 10^3/uL (150-450); RED BLOOD COUNT 5.46 10^6/uL (4.30-6.10); RED CELL DISTRIBUTION WIDTH 12.6 % (11.5-14.5); WHITE BLOOD COUNT 14.2 10^3/uL (4.0-10.0)
[2018-03-01 21:32] LABS: ALBUMIN 3.9 GM/DL (3.2-5.2); ALBUMIN/GLOBULIN RATIO 1.08 (1.00-1.93); ALKALINE PHOSPHATASE 69 U/L (45-117); ALT/SGPT 55 U/L (12-78); ANION GAP 5 MEQ/L (8-16); AST/SGOT 27 U/L (7-37); BILIRUBIN,DIRECT < 0.1 MG/DL (0.0-0.2); BILIRUBIN,TOTAL 0.2 MG/DL (0.2-1.0); BLOOD UREA NITROGEN 15 MG/DL (7-18); CALCIUM LEVEL 9.2 MG/DL (8.5-10.1); CARBON DIOXIDE LEVEL 26 MEQ/L (21-32); CHLORIDE LEVEL 110 MEQ/L (98-107); CREATININE FOR GFR 0.98 MG/DL (0.70-1.30); GLOMERULAR FILTRATION RATE > 60.0 (>60); GLUCOSE, FASTING 85 MG/DL (70-100); PHENYTOIN (DILANTIN) 3.3 UG/ML (10.0-20.0); POTASSIUM SERUM 3.8 MEQ/L (3.5-5.1); SODIUM LEVEL 141 MEQ/L (136-145); TOTAL PROTEIN 7.5 GM/DL (6.4-8.2); VALPROIC ACID (DEPAKOTE) < 3.0 UG/ML (50.0-100.0)
[2018-03-01 21:40] LABS: PROLACTIN 4.7 NG/ML (2.1-17.7)
[2018-03-01] MEDS: LIDOCAINE W/EPINEPHRINE 1% 20ML VIAL SC (21:45)
[2018-03-01] MEDS: ADACEL/BOOSTRIX VACCINE (DIPHTH/PERTUSS/ACELL/TETANUS)0.5ML SYR (90715) IM (23:06)
[2018-03-01] MEDS: DIVALPROEX 500 MG TAB PO (23:06)
[2018-03-01] MEDS: PHENYTOIN 100 MG/2 ML VIAL (J1165) IV (23:06)
[2018-03-01] MEDS: lamoTRIgine 25 MG TAB PO (23:07)
[2018-03-05 10:08] LABS: LAMOTRIGINE (LAMICTAL) None Detected ug/mL (2.0-20.0)
== END 2018-03-01 23:29 | disposition home or self-care (01) ==
LOC: M ED 19:19
DX: G40.909 Epilepsy, unspecified, not intractable, without status epilepticus (principal); S01.81XA Laceration without foreign body of other part of head, initial encounter; W18.39XA Other fall on same level, initial encounter; Y92.89 Other specified places as the place of occurrence of the external cause; F33.9 Major depressive disorder, recurrent, unspecified; Z79.899 Other long term (current) drug therapy; F17.210 Nicotine dependence, cigarettes, uncomplicated
CPT/HCPCS: 90715

== ENCOUNTER → 2018-05-04 | Outpatient (CLI) | payer OTHER ==
[2018-05-04 14:23] LABS: BASO # 0.1 10^3/uL (0.0-0.2); BASO % 0.7 % (0.0-1.0); EOS # 0.1 10^3/uL (0.0-0.50); EOS % 1.6 % (0.0-3.0); HEMOGLOBIN 16.1 g/dl (13.5-17.5); IMMATURE GRANULOCYTE % 0.1 % (0-3.0); LYMPH # 3.6 10^3/uL (1.5-6.5); LYMPH % 47.5 % (24.0-44.0); MEAN CORPUSCULAR HEMOGLOBIN 31.6 pg (27.0-33.0); MEAN CORPUSCULAR VOLUME 90.4 fl (80.0-96.0); MONO # 0.6 10^3/uL (0.0-0.8); MONO % 7.3 % (0.0-5.0); NEUTROPHILS # 3.3 10^3/uL (1.8-7.7); NEUTROPHILS % 42.8 % (36.0-66.0); PLATELET COUNT, AUTOMATED 266 10^3/uL (150-450); RED BLOOD COUNT 5.09 10^6/uL (4.30-6.10); RED CELL DISTRIBUTION WIDTH 12.6 % (11.5-14.5); WHITE BLOOD COUNT 7.7 10^3/uL (4.0-10.0)
[2018-05-04 14:40] LABS: AMMONIA 94 uMOL/L (<32)
[2018-05-04 14:48] LABS: ALBUMIN 3.9 GM/DL (3.2-5.2); ALKALINE PHOSPHATASE 55 U/L (45-117); ALT/SGPT 39 U/L (12-78); ANION GAP 8 MEQ/L (8-16); AST/SGOT 9 U/L (7-37); BILIRUBIN,TOTAL 0.2 MG/DL (0.2-1.0); BLOOD UREA NITROGEN 11 MG/DL (7-18); CALCIUM LEVEL 8.9 MG/DL (8.5-10.1); CARBON DIOXIDE LEVEL 23 MEQ/L (21-32); CHLORIDE LEVEL 109 MEQ/L (98-107); CREATININE FOR GFR 0.79 MG/DL (0.70-1.30); GLOMERULAR FILTRATION RATE > 60.0 (>60); GLUCOSE, FASTING 72 MG/DL (70-100); PHENYTOIN (DILANTIN) 5.3 UG/ML (10.0-20.0); POTASSIUM SERUM 4.3 MEQ/L (3.5-5.1); SODIUM LEVEL 140 MEQ/L (136-145); TOTAL PROTEIN 6.9 GM/DL (6.4-8.2); VALPROIC ACID (DEPAKOTE) 79.8 UG/ML (50.0-100.0)
[2018-05-08 00:07] LABS: LEVETIRACETAM (KEPPRA) 10.2 ug/mL (10.0-40.0)
== END ==
LOC: M LAB 13:07
DX: R56.9 Unspecified convulsions (principal); T78.40XA Allergy, unspecified, initial encounter
CPT/HCPCS: 82140

== ENCOUNTER → 2018-08-21 | Outpatient (REF) | payer OTHER ==
[~2018-08-21] MED LIST changes: -DIVA500T3 PO; +DIVA500T94 PO; +LAMI25TA PO; +LAMO25TA4 PO
[2018-08-21 17:53] LABS: ALT/SGPT 51 U/L (12-78); BILIRUBIN,TOTAL 0.2 MG/DL (0.2-1.0); BLOOD UREA NITROGEN 13 MG/DL (7-18); CALCIUM LEVEL 9.1 MG/DL (8.5-10.1); CARBON DIOXIDE LEVEL 24 MEQ/L (21-32); CHLORIDE LEVEL 110 MEQ/L (98-107); CREATININE FOR GFR 0.92 MG/DL (0.70-1.30); GLOMERULAR FILTRATION RATE > 60.0 (>60); GLUCOSE, FASTING 92 MG/DL (70-100); PHENYTOIN (DILANTIN) 0.7 UG/ML (10.0-20.0); POTASSIUM SERUM 4.3 MEQ/L (3.5-5.1); SODIUM LEVEL 144 MEQ/L (136-145); TOTAL PROTEIN 6.9 GM/DL (6.4-8.2); VALPROIC ACID (DEPAKOTE) 46.2 UG/ML (50.0-100.0)
[2018-08-21 17:54] LABS: BASO % 0.5 % (0.0-1.0); EOS # 0.1 10^3/uL (0.0-0.50); EOS % 1.6 % (0.0-3.0); HEMATOCRIT 49.7 % (42.0-52.0); LYMPH % 39.2 % (24.0-44.0); MEAN CORPUSCULAR HEMOGLOBIN 31.2 pg (27.0-33.0); MEAN CORPUSCULAR HGB CONC 34.2 g/dl (32.0-36.5); MEAN CORPUSCULAR VOLUME 91.2 fl (80.0-96.0); MONO # 0.6 10^3/uL (0.0-0.8); MONO % 8.5 % (0.0-5.0); NEUTROPHILS # 3.8 10^3/uL (1.8-7.7); NEUTROPHILS % 49.9 % (36.0-66.0); PLATELET COUNT, AUTOMATED 281 10^3/uL (150-450); RED BLOOD COUNT 5.45 10^6/uL (4.30-6.10); WHITE BLOOD COUNT 7.5 10^3/uL (4.0-10.0)
== END ==
LOC: M LABNEURO 13:23
PROVIDERS: ATTEND Psychiatry & Neurology Neurology
DX: Z79.899 Other long term (current) drug therapy (principal); G40.909 Epilepsy, unspecified, not intractable, without status epilepticus

== ENCOUNTER → 2019-04-11 | Outpatient (REF) | payer OTHER ==
[~2019-04-11] MED LIST changes: -/CARB4TA; -/CARBXR20T; -/ESCI10TA; -/ESCI10TA PEG; +LEXA1TAB; +LEXA1TAB PEG; +TEGR1TAB; +TEGR1TAB2
[2019-04-11 17:24] LABS: APPEARANCE, URINE CLEAR (CLEAR); BACTERIA, URINE AUTO NEGATIVE (NEGATIVE); BILIRUBIN, URINE AUTO NEGATIVE (NEGATIVE); BLOOD, URINE BLOOD NEGATIVE (NEGATIVE); COLOR, URINE YELLOW (YELLOW); GLUCOSE, URINE (UA) AUTO NEGATIVE (NEGATIVE); KETONE, URINE AUTO TRACE mg/dL (NEGATIVE); LEUKOCYTE ESTERASE, URINE AUTO NEGATIVE (NEGATIVE); NITRITE, URINE AUTO NEGATIVE (NEGATIVE); PROTEIN, URINE AUTO 1+ mg/dL (NEGATIVE); RBC, URINE AUTO 6 /HPF (0-3); SPECIFIC GRAVITY URINE AUTO 1.032 (1.002-1.035); SQUAMOUS EPITHELIAL CELL UR AU 0 /HPF (0-6); UROBILINOGEN, URINE AUTO 0.2 mg/dL (0.0-2.0); WBC, URINE AUTO 2 /HPF (0-3)
== END ==
LOC: M SFHCPLAZ 15:22
PROVIDERS: ATTEND Family Medicine
DX: R31.29 Other microscopic hematuria (principal)

== ENCOUNTER → 2019-05-09 | Outpatient (REF) | payer OTHER ==
[2019-05-09 17:24] LABS: PHENYTOIN (DILANTIN) 5.1 UG/ML (10.0-20.0); VALPROIC ACID (DEPAKOTE) 53.7 UG/ML (50.0-100.0)
== END ==
LOC: M LABNEURO 14:43
PROVIDERS: ATTEND Physician Assistant Medical
DX: R56.9 Unspecified convulsions (principal)

== ENCOUNTER → 2019-05-16 | Outpatient (REF) | payer OTHER ==
[2019-05-16 12:03] LABS: FREE T4 0.79 NG/DL (0.76-1.46); THYROID STIMULATING HORMONE 1.42 uIU/ML (0.358-3.740)
== END ==
LOC: M SFHCPLAZ 09:45
PROVIDERS: ATTEND Nurse Practitioner Family
DX: F32.9 Major depressive disorder, single episode, unspecified (principal)

== ENCOUNTER → 2019-09-27 | Outpatient (REF) | payer OTHER ==
[~2019-09-27] MED LIST changes: +DEPA1TAB3 PO; +DEPA250T32 PO; +FLUO20CA20 PO; +KEPP10002 PO; +PROZ20CA11 PO; +REME15TA PO
[2019-09-27 14:02] LABS: BASO # 0.1 10^3/uL (0.0-0.2); BASO % 0.4 % (0.0-1.0); EOS # 0.1 10^3/uL (0.0-0.5); EOS % 0.7 % (0.0-3.0); HEMATOCRIT 50.7 % (42.0-52.0); HEMOGLOBIN 16.3 g/dl (13.5-17.5); LYMPH # 3.2 10^3/uL (1.5-5.0); LYMPH % 26.6 % (24.0-44.0); MEAN CORPUSCULAR HEMOGLOBIN 31.3 pg (27.0-33.0); MEAN CORPUSCULAR HGB CONC 32.1 g/dl (32.0-36.5); MEAN CORPUSCULAR VOLUME 97.3 fl (80.0-96.0); NEUTROPHILS # 7.8 10^3/uL (1.5-8.5); PLATELET COUNT, AUTOMATED 297 10^3/uL (150-450); RED BLOOD COUNT 5.21 10^6/uL (4.30-6.10); WHITE BLOOD COUNT 12.1 10^3/uL (4.0-10.0)
[2019-09-27 14:38] LABS: ALBUMIN 4.1 GM/DL (3.2-5.2); ALT/SGPT 58 U/L (12-78); BILIRUBIN,TOTAL 0.1 MG/DL (0.2-1.0); BLOOD UREA NITROGEN 22 MG/DL (7-18); CARBON DIOXIDE LEVEL 27 MEQ/L (21-32); CHLORIDE LEVEL 110 MEQ/L (98-107); CHOLESTEROL LEVEL 276 MG/DL (<200); CHOLESTEROL RISK RATIO 7.076 (<5); CREATININE FOR GFR 1.01 MG/DL (0.70-1.30); GLOMERULAR FILTRATION RATE > 60.0 (>60); GLUCOSE, FASTING 72 MG/DL (70-100); HDL CHOLESTEROL 39 MG/DL (>40); LDL CHOLESTEROL 163 MG/DL (<100); NON-HDL-C 237 MG/DL; PHENYTOIN (DILANTIN) 16.6 UG/ML (10.0-20.0); POTASSIUM SERUM 4.8 MEQ/L (3.5-5.1); SODIUM LEVEL 144 MEQ/L (136-145); TRIGLYCERIDES LEVEL 371 MG/DL (<150); VALPROIC ACID (DEPAKOTE) 50.8 UG/ML (50.0-100.0)
== END ==
LOC: M SFHCPLAZ 11:38
PROVIDERS: ATTEND Nurse Practitioner Family
DX: E78.2 Mixed hyperlipidemia (principal); G40.909 Epilepsy, unspecified, not intractable, without status epilepticus

== ENCOUNTER 2019-12-06 19:43 | Emergency (ER) | payer OTHER ==
[~2019-12-06] VITALS: Ht 175.3 cm; Wt 99.9 kg
[2019-12-06] MEDS ORDERED: NS 1,000 ML IV ONE (20:15)
[2019-12-06 21:18] LABS: BASO # 0.1 10^3/uL (0.0-0.2); BASO % 0.3 % (0.0-1.0); HEMATOCRIT 50.4 % (42.0-52.0); LYMPH # 2.4 10^3/uL (1.5-5.0); LYMPH % 13.4 % (24.0-44.0); MEAN CORPUSCULAR HEMOGLOBIN 31.7 pg (27.0-33.0); MEAN CORPUSCULAR HGB CONC 33.7 g/dl (32.0-36.5); MONO # 1.5 10^3/uL (0.0-0.8); MONO % 8.2 % (0.0-5.0); NEUTROPHILS # 13.9 10^3/uL (1.5-8.5); NEUTROPHILS % 77.5 % (36.0-66.0); PLATELET COUNT, AUTOMATED 230 10^3/uL (150-450); RED BLOOD COUNT 5.36 10^6/uL (4.30-6.10); WHITE BLOOD COUNT 17.9 10^3/uL (4.0-10.0)
[2019-12-06 21:25] LABS: ACETAMINOPHEN LEVEL < 2.0 UG/ML (10.0-30.0); ALBUMIN 3.4 GM/DL (3.2-5.2); ALT/SGPT 67 U/L (12-78); BILIRUBIN,DIRECT 0.1 MG/DL (0.0-0.2); BILIRUBIN,TOTAL 0.1 MG/DL (0.2-1.0); BLOOD UREA NITROGEN 14 MG/DL (7-18); CALCIUM LEVEL 7.1 MG/DL (8.5-10.1); CARBON DIOXIDE LEVEL 17 MEQ/L (21-32); CHLORIDE LEVEL 113 MEQ/L (98-107); CK-MB VALUE MASS 2.1 NG/ML (<3.6); CPK CREATINE PHOSPHOKINASE 275 U/L (39-308); CREATININE FOR GFR 0.82 MG/DL (0.70-1.30); ETHYL ALCOHOL (ETHANOL) < 0.003 % (0.000-0.010); GLOMERULAR FILTRATION RATE > 60.0 (>60); GLUCOSE, FASTING 78 MG/DL (70-100); MB/CK RELATIVE INDEX 0.76 (< OR =4); PHENYTOIN (DILANTIN) 2.3 UG/ML (10.0-20.0); POTASSIUM SERUM 3.7 MEQ/L (3.5-5.1); SODIUM LEVEL 143 MEQ/L (136-145); THYROID STIMULATING HORMONE 0.538 uIU/ML (0.358-3.740); TROPONIN I 0.03 NG/ML (< 0.10); VALPROIC ACID (DEPAKOTE) 13.9 UG/ML (50.0-100.0)
--- NOTE | 2019-12-06 21:37 | REPVR ---
PROCEDURE INFORMATION: Exam: CT Head Without Contrast Exam date and time: 12/06/2019 9:17 PM Age: 29 years old Clinical indication: Altered mental status/memory loss; Confusion or disorientation TECHNIQUE: Imaging protocol: Computed tomography of the head without contrast. Radiation optimization: All CT scans at this facility use at least one of these dose optimization techniques: automated exposure control; mA and/or kV adjustment per patient size (includes targeted exams where dose is matched to clinical indication); or iterative reconstruction. COMPARISON: CT Head without contrast 03/01/2018 8:38 PM FINDINGS: Brain: Normal. No hemorrhage. Unremarkable white matter. No mass effect. Ventricles: Normal. No ventriculomegaly. Bones/joints: Unremarkable. No acute fracture. Sinuses: Mild paranasal sinus disease. Mastoid air cells: Visualized mastoid air cells are well aerated. Soft tissues: Unremarkable. IMPRESSION: No acute intracranial abnormality. Electronically signed by: Rick Dempsey On 12/06/2019 21:37:20 PM
[2019-12-06] MEDS ORDERED: VALPROATE SOD INJ 500 MG in D5W 50 ML IV ONE (21:45)
[2019-12-07] VITALS: BP 123/56
--- NOTE | 2019-12-07 08:57 | ECGEPIP ---
[facility] - ED Test Date: 2019-12-06 Pat Name: MIKALA CANTU Department: Room: - Gender: Male Director Of Sales And Marketing: madeleine : 1990 Requested By: CHRIS Camacho Order Number: [id number] Reading MD: Shar De Anda Measurements Intervals [place] Rate: 67 P: 32 LA: 158 QRS: 34 QRSD: 111 T: 11 QT: 375 QTc: 396 Interpretive Statements SINUS RHYTHM MODERATE INTRAVENTRICULAR CONDUCTION DELAY NONSPECIFIC T-WAVE ABNORMALITY SIMILAR TO 07/25/19 Electronically Signed on 12-07-2019 8:56:51 EDT by Shar De Anda
== END 2019-12-07 01:03 | disposition home or self-care (01) ==
LOC: M ED 19:43
DX: G40.909 Epilepsy, unspecified, not intractable, without status epilepticus (principal); Z91.14 Patient's other noncompliance with medication regimen; F99 Mental disorder, not otherwise specified; Z79.899 Other long term (current) drug therapy
CPT/HCPCS: 70450; 80048; 80076; 80164; 80180; 80185; 82550; 82553; 83605; 84443; 85025; 93005; 93041; 94760; 96365; 96366; 99285; G0480